=== PATIENT | male | born 1955 | race African-American/Black ===

== ENCOUNTER 2016-06-17 16:30 | Emergency (ER) | payer OTHER ==
[~2016-06-17] VITALS: Ht 170.2 cm; Wt 99.8 kg
[2016-06-17 16:40] VITALS: BP 154/95
--- NOTE | 2016-06-17 16:42 | Emergency Room Report ---
History of Present Illness General Chief Complaint: Pain Source: EMS Present Illness HPI The patient is a 61-year-old male brought in by ambulance for right handed finger pain. The patient states he developed pain of the pinky finger one week prior for no known reason. Patient does not remember hitting the hand anywhere. Pain is described as a 9/10 dull ache it does not radiate. Patient states he is unable to move the finger due to pain. The patient denies prior injury to this area. Patient denies any numbness or tingling. Patient denies rash, nausea, vomiting, fever, chills The patient states that he takes [place] and soma for chronic pain Allergies: Coded Allergies: No Known Allergies (Unverified , 06/17/16) Patient History Past Medical History: see triage record Pertinent Family History: none Reviewed Nursing Documentation: PMH: Agreed, PSxH: Agreed Nursing Documentation-PMH Past Medical History: No History, Except For Hx Hypertension: Yes Review of Systems All Other Systems: negative except mentioned in HPI Physical Exam Vital Signs Date Time Temp Pulse Resp B/P Pulse Ox O2 Delivery O2 Flow Rate FiO2 06/17/16 16:22 97.5 116 16 195/114 98 Sp02 EP Interpretation: reviewed, normal General Appearance: no apparent distress, alert, GCS 15, non-toxic Head: normocephalic, atraumatic Eyes: bilateral eye PERRL, bilateral eye normal inspection ENT: hearing grossly normal, normal pharynx, no angioedema, normal voice Cardiovascular #1: regular rate, rhythm, no edema Gastrointestinal: normal bowel sounds, non tender, soft, non-distended, no guarding, no rebound Genitourinary: normal inspection, no CVA tenderness Musculoskeletal: normal inspection, decreased range of motion - decreased flexion of R 5th digit, tender - TTP over the proximal R 5th digit Neurologic: alert, oriented x3, responsive, motor strength/tone normal, sensory intact, speech normal Psychiatric: judgement/insight normal, memory normal, mood/affect normal, no suicidal/homicidal ideation Skin: normal color, no rash, warm/dry, well hydrated Lymphatic: no adenopathy Medical Decision Making PA Attestation Dr. Rolle is my supervising physician. Patient management was discussed with my supervising physician Diagnostic Impression: Primary Impression: Finger sprain Additional Impression: Finger fracture ER Course The patient is a 61-year-old male brought in by ambulance for right handed finger pain Ddx considered include but not limited to sprain/strain, fracture, contusion PE: Afebrile. NAD. Right hand: There is tenderness to palpation over the proximal fifth digit. No obvious deformity. There is limited active range of motion due to pain. Sensation intact to light touch. X-ray of the hand shows a small avulsion fracture at the base of the 5th digit the patient is given tramadol for pain with good relief. The patient was informed of these findings but has declined finger splint. The patient will be discharged home and is given ER precautions. Patient is advised to followup with PMD, orthopedics, and pain management Other X-Ray Diagnostic Results Other X-Ray Diagnostic Results : X-Ray Ordered: R hand Date: Jun 17, 2016 Findings: no dislocation, no soft tissue swelling, other - avulsion fracture Number of Views: 3 PA Scribe Text I am acting as scribe for my supervising physician. My supervising physician's interpretation of the R hand xrays are there is an avulsion fracture of the base of the 5th digit Last Vital Signs Date Time Temp Pulse Resp B/P Pulse Ox O2 Delivery O2 Flow Rate FiO2 06/17/16 16:22 97.5 116 16 195/114 98 Status: improved Disposition: HOME, SELF-CARE Condition: Improved Scripts Ibuprofen* (MOTRIN*) 600 Mg Tablet 600 MG ORAL Q8H Y for For Pain, #30 TAB 0 Refills Prov: MARINE FLEMING 06/17/16 MARINE FLEMING Jun 17, 2016 16:42
[2016-06-17] MEDS ORDERED: traMADol 50mg tab ORAL ONE (16:45)
[2016-06-17] MEDS ORDERED: IBUPROFEN600 MG ORAL (17:17)
[2016-06-17 17:22] VITALS: BP 154/95
--- NOTE | 2016-06-19 08:06 | Diagnostic Imaging Report ---
Indication: PAIN Technique: 3 views right hand Comparison: none Findings: There is a small radiopaque foreign body in the soft tissues medial to the fifth metacarpal phalangeal joint. The joint spaces are preserved. No acute fractures. No dislocations. Impression: No acute bony trauma Soft tissue foreign body demonstrated as described Findings discussed by phone with Dr. Goetz in the emergency room at the time of interpretation
== END 2016-06-17 17:22 | disposition home or self-care (01) ==
LOC: EDBD 16:30 → EMR 17:03
DX: S63.616A Unspecified sprain of right little finger, initial encounter (principal); S62.616A Displaced fracture of proximal phalanx of right little finger, initial encounter for closed fracture; X58.XXXA Exposure to other specified factors, initial encounter; Y93.9 Activity, unspecified; Y92.9 Unspecified place or not applicable; Y99.9 Unspecified external cause status; I10 Essential (primary) hypertension; M79.644 Pain in right finger(s)
CPT/HCPCS: 99283